=== PATIENT | female | born 1975 | race American Indian/Alaskan Native ===

== ENCOUNTER 2017-07-01 05:29 | Emergency (ER) | payer OTHER ==
[2017-07-01 05:56] VITALS: BP 150/94
[2017-07-01] MEDS ORDERED: TYLENOL #3 PO ONE (06:14)
--- NOTE | 2017-07-01 06:19 | Emergency Department Report ---
ED ENT HPI - General Chief complaint: Dental/Oral Stated complaint: TOOTHACHE Time Seen by Provider: 07/01/17 06:14 Source: patient Mode of arrival: Ambulatory Limitations: No Limitations - History of Present Illness Initial comments: 41-year-old female past medical history depression, dental cavities presents with complaint of acute on chronic left upper incisor toothache. Patient speaking in full sentences. No drooling trismus on exam. No audible wheezing or stridor. Patient fully lucid. States she has not yet seen a dentist for this problem. Pain is 8 out of 10. MD complaint: tooth pain Onset/Timin -: week(s) Location: tooth # 1 - dentla pain with cavity here Severity scale (0 -10): 6 Quality: aching Worsens with: swallowing, eating Context- Dental: history of dental caries, poor dental care Associated Symptoms: toothache - Related Data Home Medications Medication Instructions Recorded Confirmed Last Taken Citalopram Hydrobromide [Celexa] 40 mg PO DAILY 05/16/13 05/16/13 05/14/13 risperiDONE [RisperDAL] 3 mg PO 05/16/13 05/16/13 05/14/13 Previous Rx's Medication Instructions Recorded Last Taken Type Cephalexin [Keflex] 500 mg PO TID #14 capsule 10/25/13 Unknown Rx oxyCODONE /ACETAMINOPHEN [Percocet 1 tab PO Q6HR PRN #10 tablet 10/25/13 Unknown Rx 5/325 mg] Ciprofloxacin HCl [Cipro] 500 mg PO BID #20 tablet 01/05/14 Unknown Rx Promethazine [Phenergan] 25 mg PO Q6H PRN #14 tablet 01/05/14 Unknown Rx Cyclobenzaprine HCl [Flexeril 5mg] 5 mg PO BID #10 tablet 04/13/14 Unknown Rx Naproxen [Naprosyn] 250 mg PO BID #20 tablet 04/13/14 Unknown Rx traMADol [Ultram 50 MG tab] 50 mg PO Q6HR PRN #16 tablet 04/13/14 Unknown Rx Acetaminophen/Codeine [Tylenol 1 tab PO Q6H PRN #12 tab 07/01/17 Unknown Rx /Codeine # 3 tab] Amoxicillin [Trimox CAP] 500 mg PO Q8H #30 capsule 07/01/17 Unknown Rx Benzocaine [Orajel Liquid 20%] 1 ml MM Q6HR PRN #1 bottle 07/01/17 Unknown Rx Chlorhexidine Mouthwash [Peridex] 15 ml MM BID #1 bottle 07/01/17 Unknown Rx Ibuprofen [Motrin] 800 mg PO Q8HR PRN #30 tablet 07/01/17 Unknown Rx Allergies Allergy/AdvReac Type Severity Reaction Status Date / Time Sulfa (Sulfonamide Allergy Intermediate Shortness Verified 05/16/13 01:05 Antibiotics) of Breath ED Dental HPI - General Chief complaint: Dental/Oral Stated complaint: TOOTHACHE Time Seen by Provider: 07/01/17 06:14 Source: patient Mode of arrival: Ambulatory Limitations: No Limitations - Related Data Home Medications Medication Instructions Recorded Confirmed Last Taken Citalopram Hydrobromide [Celexa] 40 mg PO DAILY 05/16/13 05/16/13 05/14/13 risperiDONE [RisperDAL] 3 mg PO 05/16/13 05/16/13 05/14/13 Previous Rx's Medication Instructions Recorded Last Taken Type Cephalexin [Keflex] 500 mg PO TID #14 capsule 10/25/13 Unknown Rx oxyCODONE /ACETAMINOPHEN [Percocet 1 tab PO Q6HR PRN #10 tablet 10/25/13 Unknown Rx 5/325 mg] Ciprofloxacin HCl [Cipro] 500 mg PO BID #20 tablet 01/05/14 Unknown Rx Promethazine [Phenergan] 25 mg PO Q6H PRN #14 tablet 01/05/14 Unknown Rx Cyclobenzaprine HCl [Flexeril 5mg] 5 mg PO BID #10 tablet 04/13/14 Unknown Rx Naproxen [Naprosyn] 250 mg PO BID #20 tablet 04/13/14 Unknown Rx traMADol [Ultram 50 MG tab] 50 mg PO Q6HR PRN #16 tablet 04/13/14 Unknown Rx Acetaminophen/Codeine [Tylenol 1 tab PO Q6H PRN #12 tab 07/01/17 Unknown Rx /Codeine # 3 tab] Amoxicillin [Trimox CAP] 500 mg PO Q8H #30 capsule 07/01/17 Unknown Rx Benzocaine [Orajel Liquid 20%] 1 ml MM Q6HR PRN #1 bottle 07/01/17 Unknown Rx Chlorhexidine Mouthwash [Peridex] 15 ml MM BID #1 bottle 07/01/17 Unknown Rx Ibuprofen [Motrin] 800 mg PO Q8HR PRN #30 tablet 07/01/17 Unknown Rx Allergies Allergy/AdvReac Type Severity Reaction Status Date / Time Sulfa (Sulfonamide Allergy Intermediate Shortness Verified 05/16/13 01:05 Antibiotics) of Breath ED Review of Systems ROS: Stated complaint: TOOTHACHE Other details as noted in HPI ED Past Medical Hx - Past Medical History Previous Medical History?: Yes Hx Hypertension: No Additional medical history: bipolar - Surgical History Past Surgical History?: Yes Additional Surgical History: tubial ligation - Social History Smoking Status: Former Smoker Substance Use Type: None - Medications Home Medications: Home Medications Medication Instructions Recorded Confirmed Last Taken Type Citalopram Hydrobromide [Celexa] 40 mg PO DAILY 05/16/13 05/16/13 05/14/13 History risperiDONE [RisperDAL] 3 mg PO 05/16/13 05/16/13 05/14/13 History Cephalexin [Keflex] 500 mg PO TID #14 capsule 10/25/13 Unknown Rx oxyCODONE /ACETAMINOPHEN [Percocet 1 tab PO Q6HR PRN #10 tablet 10/25/13 Unknown Rx 5/325 mg] Ciprofloxacin HCl [Cipro] 500 mg PO BID #20 tablet 01/05/14 Unknown Rx Promethazine [Phenergan] 25 mg PO Q6H PRN #14 tablet 01/05/14 Unknown Rx Cyclobenzaprine HCl [Flexeril 5mg] 5 mg PO BID #10 tablet 04/13/14 Unknown Rx Naproxen [Naprosyn] 250 mg PO BID #20 tablet 04/13/14 Unknown Rx traMADol [Ultram 50 MG tab] 50 mg PO Q6HR PRN #16 tablet 04/13/14 Unknown Rx Acetaminophen/Codeine [Tylenol 1 tab PO Q6H PRN #12 tab 07/01/17 Unknown Rx /Codeine # 3 tab] Amoxicillin [Trimox CAP] 500 mg PO Q8H #30 capsule 07/01/17 Unknown Rx Benzocaine [Orajel Liquid 20%] 1 ml MM Q6HR PRN #1 bottle 07/01/17 Unknown Rx Chlorhexidine Mouthwash [Peridex] 15 ml MM BID #1 bottle 07/01/17 Unknown Rx Ibuprofen [Motrin] 800 mg PO Q8HR PRN #30 tablet 07/01/17 Unknown Rx ED Physical Exam - General Limitations: No Limitations General appearance: alert, in no apparent distress - Head Head exam: Present: atraumatic, normocephalic - Eye Eye exam: Present: normal appearance, PERRL, EOMI - ENT ENT exam: Present: mucous membranes moist - Expanded ENT Exam Expanded Teeth exam: Present: dental tenderness # (12) 1 - Dental Tenderness (cavity here) - Neck Neck exam: Present: normal inspection - Respiratory Respiratory exam: Present: normal lung sounds bilaterally. Absent: respiratory distress - Cardiovascular Cardiovascular Exam: Present: regular rate, normal rhythm. Absent: systolic murmur, diastolic murmur, rubs, gallop - GI/Abdominal GI/Abdominal exam: Present: soft, normal bowel sounds - Extremities Exam Extremities exam: Present: normal inspection - Back Exam Back exam: Present: normal inspection - Neurological Exam Neurological exam: Present: alert, oriented X3 - Psychiatric Psychiatric exam: Present: normal affect, normal mood - Skin Skin exam: Present: warm, dry, intact, normal color. Absent: rash ED Course Vital Signs 07/01/17 07/01/17 05:39 05:42 Temperature 98.3 F 98.3 F Pulse Rate 102 H 102 H Respiratory 20 20 Rate Blood Pressure 150/94 150/94 O2 Sat by Pulse 99 99 Oximetry ED Medical Decision Making - Medical Decision Making A/P: dental cavities, toothache, dental abscess 1- Motrin when necessary, amoxicillin ten-day course, Orajel when necessary, Peridex mouthwash daily basis, short course codeine when necessary 2- I provided patient with information for multiple dental clinics to follow up and stressed the importance of dental follow-up as she has a cavitiy that requires dental fixation or instrumentation 3- no clinical signs of facial abscess, no Sean's angina, no induration or cellulitis of floor of mouth or tongue 4- patient able to tolerate by mouth before discharge 5- no signs of facial infection. Advised patient that if he does not take antibiotics with follow-up with a dentist as soon as possible that a can result in potentially serious or dangerous infection to develop in jaw or face. Patient states that he understood these instructions. I advised patient to return to the ED for any persistent unrelenting nausea or vomiting fever or chills or headaches. Critical care attestation.: If time is entered above; I have spent that time in minutes in the direct care of this critically ill patient, excluding procedure time. ED Disposition Clinical Impression: Pain, dental, Dental cavity Disposition: TO HOME OR SELFCARE Is pt being admited?: No Does the pt Need Aspirin: No Condition: Stable Instructions: Dental Caries (ED), Toothache (ED) Prescriptions: Acetaminophen/Codeine [Tylenol /Codeine # 3 tab] 1 tab PO Q6H PRN #12 tab PRN Reason: Pain Amoxicillin [Trimox CAP] 500 mg PO Q8H #30 capsule Benzocaine [Orajel Liquid 20%] 1 ml MM Q6HR PRN #1 bottle PRN Reason: Toothache Chlorhexidine Mouthwash [Peridex] 15 ml MM BID #1 bottle Ibuprofen [Motrin] 800 mg PO Q8HR PRN #30 tablet PRN Reason: Pain Referrals: [facility] [Outside] - 3-5 Days Forms: Accompanied Note, Work/School Release Form(ED) Time of Disposition: 06:16
== END 2017-07-01 06:29 | disposition home or self-care (01) ==
LOC: ED 05:29
DX: K08.89 Other specified disorders of teeth and supporting structures (principal); Z87.891 Personal history of nicotine dependence; Z88.2 Allergy status to sulfonamides
CPT/HCPCS: 99282

== ENCOUNTER 2018-09-15 07:27 | Emergency (ER) | payer SELFPAY ==
[2018-09-15 07:35] VITALS: BP 137/92
--- NOTE | 2018-09-15 08:29 | Emergency Department Report ---
ED ENT HPI - General Chief complaint: Sore Throat Stated complaint: SORE THROAT/HARD TO SWALLOW Time Seen by Provider: 09/15/18 08:24 Source: patient Mode of arrival: Ambulatory Limitations: No Limitations - History of Present Illness MD complaint: sore throat -: Last night Severity: moderate Severity scale (0 -10): 4 Consistency: constant Worsens with: swallowing Associated Symptoms: cough, sore throat, rhinorrhea - Related Data Home Medications Medication Instructions Recorded Confirmed Last Taken Citalopram Hydrobromide [Celexa] 40 mg PO DAILY 05/16/13 05/16/13 05/14/13 risperiDONE [RisperDAL] 3 mg PO 05/16/13 05/16/13 05/14/13 Previous Rx's Medication Instructions Recorded Last Taken Type Cephalexin [Keflex] 500 mg PO TID #14 capsule 10/25/13 Unknown Rx oxyCODONE /ACETAMINOPHEN [Percocet 1 tab PO Q6HR PRN #10 tablet 10/25/13 Unknown Rx 5/325 mg] Ciprofloxacin HCl [Cipro] 500 mg PO BID #20 tablet 01/05/14 Unknown Rx Promethazine [Phenergan] 25 mg PO Q6H PRN #14 tablet 01/05/14 Unknown Rx Cyclobenzaprine HCl [Flexeril 5mg] 5 mg PO BID #10 tablet 04/13/14 Unknown Rx Naproxen [Naprosyn] 250 mg PO BID #20 tablet 04/13/14 Unknown Rx traMADol [Ultram 50 MG tab] 50 mg PO Q6HR PRN #16 tablet 04/13/14 Unknown Rx Acetaminophen/Codeine [Tylenol 1 tab PO Q6H PRN #12 tab 07/01/17 Unknown Rx /Codeine # 3 tab] Amoxicillin [Trimox CAP] 500 mg PO Q8H #30 capsule 07/01/17 Unknown Rx Benzocaine [Orajel Liquid 20%] 1 ml MM Q6HR PRN #1 bottle 07/01/17 Unknown Rx Chlorhexidine Mouthwash [Peridex] 15 ml MM BID #1 bottle 07/01/17 Unknown Rx Ibuprofen [Motrin] 800 mg PO Q8HR PRN #30 tablet 07/01/17 Unknown Rx Allergies Allergy/AdvReac Type Severity Reaction Status Date / Time Sulfa (Sulfonamide Allergy Intermediate Shortness Verified 05/16/13 01:05 Antibiotics) of Breath ED Dental HPI - General Chief complaint: Sore Throat Stated complaint: SORE THROAT/HARD TO SWALLOW Time Seen by Provider: 09/15/18 08:24 Source: patient Mode of arrival: Ambulatory Limitations: No Limitations - Related Data Home Medications Medication Instructions Recorded Confirmed Last Taken Citalopram Hydrobromide [Celexa] 40 mg PO DAILY 05/16/13 05/16/13 05/14/13 risperiDONE [RisperDAL] 3 mg PO 05/16/13 05/16/13 05/14/13 Previous Rx's Medication Instructions Recorded Last Taken Type Cephalexin [Keflex] 500 mg PO TID #14 capsule 10/25/13 Unknown Rx oxyCODONE /ACETAMINOPHEN [Percocet 1 tab PO Q6HR PRN #10 tablet 10/25/13 Unknown Rx 5/325 mg] Ciprofloxacin HCl [Cipro] 500 mg PO BID #20 tablet 01/05/14 Unknown Rx Promethazine [Phenergan] 25 mg PO Q6H PRN #14 tablet 01/05/14 Unknown Rx Cyclobenzaprine HCl [Flexeril 5mg] 5 mg PO BID #10 tablet 04/13/14 Unknown Rx Naproxen [Naprosyn] 250 mg PO BID #20 tablet 04/13/14 Unknown Rx traMADol [Ultram 50 MG tab] 50 mg PO Q6HR PRN #16 tablet 04/13/14 Unknown Rx Acetaminophen/Codeine [Tylenol 1 tab PO Q6H PRN #12 tab 07/01/17 Unknown Rx /Codeine # 3 tab] Amoxicillin [Trimox CAP] 500 mg PO Q8H #30 capsule 07/01/17 Unknown Rx Benzocaine [Orajel Liquid 20%] 1 ml MM Q6HR PRN #1 bottle 07/01/17 Unknown Rx Chlorhexidine Mouthwash [Peridex] 15 ml MM BID #1 bottle 07/01/17 Unknown Rx Ibuprofen [Motrin] 800 mg PO Q8HR PRN #30 tablet 07/01/17 Unknown Rx Allergies Allergy/AdvReac Type Severity Reaction Status Date / Time Sulfa (Sulfonamide Allergy Intermediate Shortness Verified 05/16/13 01:05 Antibiotics) of Breath ED Review of Systems ROS: Stated complaint: SORE THROAT/HARD TO SWALLOW Other details as noted in HPI Comment: All other systems reviewed and negative Constitutional: denies: chills, fever ENT: throat pain, congestion Respiratory: cough. denies: orthopnea, shortness of breath, SOB with exertion, SOB at rest Cardiovascular: denies: chest pain, palpitations Gastrointestinal: denies: abdominal pain, nausea, vomiting Neurological: denies: headache, weakness, numbness, paresthesias, confusion ED Past Medical Hx - Past Medical History Hx Hypertension: No Additional medical history: bipolar - Surgical History Additional Surgical History: tubial ligation - Social History Smoking Status: Never Smoker Substance Use Type: None - Medications Home Medications: Home Medications Medication Instructions Recorded Confirmed Last Taken Type Citalopram Hydrobromide [Celexa] 40 mg PO DAILY 05/16/13 05/16/13 05/14/13 History risperiDONE [RisperDAL] 3 mg PO 05/16/13 05/16/13 05/14/13 History Cephalexin [Keflex] 500 mg PO TID #14 capsule 10/25/13 Unknown Rx oxyCODONE /ACETAMINOPHEN [Percocet 1 tab PO Q6HR PRN #10 tablet 10/25/13 Unknown Rx 5/325 mg] Ciprofloxacin HCl [Cipro] 500 mg PO BID #20 tablet 01/05/14 Unknown Rx Promethazine [Phenergan] 25 mg PO Q6H PRN #14 tablet 01/05/14 Unknown Rx Cyclobenzaprine HCl [Flexeril 5mg] 5 mg PO BID #10 tablet 04/13/14 Unknown Rx Naproxen [Naprosyn] 250 mg PO BID #20 tablet 04/13/14 Unknown Rx traMADol [Ultram 50 MG tab] 50 mg PO Q6HR PRN #16 tablet 04/13/14 Unknown Rx Acetaminophen/Codeine [Tylenol 1 tab PO Q6H PRN #12 tab 07/01/17 Unknown Rx /Codeine # 3 tab] Amoxicillin [Trimox CAP] 500 mg PO Q8H #30 capsule 07/01/17 Unknown Rx Benzocaine [Orajel Liquid 20%] 1 ml MM Q6HR PRN #1 bottle 07/01/17 Unknown Rx Chlorhexidine Mouthwash [Peridex] 15 ml MM BID #1 bottle 07/01/17 Unknown Rx Ibuprofen [Motrin] 800 mg PO Q8HR PRN #30 tablet 07/01/17 Unknown Rx ED Physical Exam - General Limitations: No Limitations General appearance: alert, in no apparent distress - Head Head exam: Present: atraumatic, normocephalic, normal inspection - Eye Eye exam: Present: normal appearance - ENT ENT exam: Present: mucous membranes moist, other (pharyngeal erythema, no tonsillar exudates.) - Neck Neck exam: Present: normal inspection, full ROM. Absent: tenderness, meningismus, lymphadenopathy, thyromegaly - Respiratory Respiratory exam: Present: normal lung sounds bilaterally. Absent: wheezes, rales, rhonchi, stridor, chest wall tenderness, accessory muscle use, decreased breath sounds, prolonged expiratory - Cardiovascular Cardiovascular Exam: Present: regular rate, normal rhythm, normal heart sounds - GI/Abdominal GI/Abdominal exam: Present: soft. Absent: distended, tenderness, guarding, rebound, rigid, organomegaly, mass, bruit, pulsatile mass - Extremities Exam Extremities exam: Present: normal inspection, full ROM, normal capillary refill - Back Exam Back exam: Present: normal inspection, full ROM. Absent: tenderness, CVA tenderness (R), CVA tenderness (L), muscle spasm, paraspinal tenderness, vertebral tenderness - Neurological Exam Neurological exam: Present: alert, oriented X3, CN II-XII intact, normal gait - Skin Skin exam: Present: warm, intact ED Course Vital Signs 09/15/18 09/15/18 07:33 08:24 Temperature 97.7 F Pulse Rate 87 Respiratory 18 18 Rate Blood Pressure 137/92 [Right] O2 Sat by Pulse 100 99 Oximetry ED Medical Decision Making - Medical Decision Making Strep test is negative. I believe patient is having a viral syndrome. Critical care attestation.: If time is entered above; I have spent that time in minutes in the direct care of this critically ill patient, excluding procedure time. ED Disposition Clinical Impression: Viral syndrome Disposition: DC-01 TO HOME OR SELFCARE Is pt being admited?: No Condition: Stable Instructions: Viral Syndrome (ED) Referrals: TELLY PHAM [Primary Care Provider] - 3-5 Days
== END 2018-09-15 09:22 | disposition home or self-care (01) ==
LOC: ED 07:27
DX: B34.9 Viral infection, unspecified (principal); J02.9 Acute pharyngitis, unspecified; F31.9 Bipolar disorder, unspecified; Z98.51 Tubal ligation status; Z88.2 Allergy status to sulfonamides
CPT/HCPCS: 87116; 87430; 99283

== ENCOUNTER 2019-12-21 04:49 | Emergency (ER) | payer SELFPAY ==
--- NOTE | 2019-12-21 06:13 | Emergency Department Report ---
- General Chief Complaint: Pain General Stated Complaint: BODY ACHE, AND FEVER Time Seen by Provider: 12/21/19 05:58 Source: patient Mode of arrival: Ambulatory Limitations: No Limitations - History of Present Illness Initial Comments: 44-year-old female presents emergency department complaining of one-week history of cough with mild sore throat coryza occasional sweats and chills. MD Complaint: cough, rhinorrhea -: Gradual Severity: mild, moderate Quality: dull Consistency: constant Improves With: nothing Worsens With: nothing Associated Symptoms: cough. denies: myalgias, headache, shortness of breath, abdominal pain, nausea, confusion, right sweats, weight loss, epistaxis Treatments Prior to Arrival: none - Related Data Home Medications Medication Instructions Recorded Confirmed Last Taken Citalopram Hydrobromide [Celexa] 40 mg PO DAILY 05/16/13 05/16/13 05/14/13 risperiDONE [RisperDAL] 3 mg PO 05/16/13 05/16/13 05/14/13 Previous Rx's Medication Instructions Recorded Last Taken Type Cephalexin [Keflex] 500 mg PO TID #14 capsule 10/25/13 Unknown Rx oxyCODONE /ACETAMINOPHEN [Percocet 1 tab PO Q6HR PRN #10 tablet 10/25/13 Unknown Rx 5/325 mg] Ciprofloxacin HCl [Cipro] 500 mg PO BID #20 tablet 01/05/14 Unknown Rx Promethazine [Phenergan] 25 mg PO Q6H PRN #14 tablet 01/05/14 Unknown Rx Cyclobenzaprine HCl [Flexeril 5mg] 5 mg PO BID #10 tablet 04/13/14 Unknown Rx Naproxen [Naprosyn] 250 mg PO BID #20 tablet 04/13/14 Unknown Rx traMADoL [Ultram 50 MG tab] 50 mg PO Q6HR PRN #16 tablet 04/13/14 Unknown Rx Acetaminophen/Codeine [Tylenol 1 tab PO Q6H PRN #12 tab 07/01/17 Unknown Rx /Codeine # 3 tab] Amoxicillin [Trimox CAP] 500 mg PO Q8H #30 capsule 07/01/17 Unknown Rx Benzocaine [Orajel Liquid 20%] 1 ml MM Q6HR PRN #1 bottle 07/01/17 Unknown Rx Chlorhexidine Mouthwash [Peridex] 15 ml MM BID #1 bottle 07/01/17 Unknown Rx Ibuprofen [Motrin] 800 mg PO Q8HR PRN #30 tablet 07/01/17 Unknown Rx Naproxen [Naprosyn] 500 mg PO BID #14 tablet 09/15/18 Unknown Rx guaiFENesin/CODEINE [Robitussin AC] 10 ml PO TID PRN #100 ml 09/15/18 Unknown Rx Albuterol INH(or & Nicu Only) 1 puff IH Q4-6H PRN #1 inha 12/21/19 Unknown Rx [ProAir HFA Inhaler] Azithromycin [Zithromax] 500 mg PO QDAY #5 tablet 12/21/19 Unknown Rx Allergies Allergy/AdvReac Type Severity Reaction Status Date / Time Sulfa (Sulfonamide Allergy Intermediate Shortness Verified 05/16/13 01:05 Antibiotics) of Breath ED Review of Systems ROS: Stated complaint: BODY ACHE, AND FEVER Other details as noted in HPI Comment: All other systems reviewed and negative ED Past Medical Hx - Past Medical History Previous Medical History?: Yes Hx Hypertension: No Hx Psychiatric Treatment: Yes (Bipolar) Additional medical history: bipolar - Surgical History Past Surgical History?: Yes Additional Surgical History: tubial ligation - Social History Smoking Status: Current Some Day Smoker Substance Use Type: None - Medications Home Medications: Home Medications Medication Instructions Recorded Confirmed Last Taken Type Citalopram Hydrobromide [Celexa] 40 mg PO DAILY 05/16/13 05/16/13 05/14/13 History risperiDONE [RisperDAL] 3 mg PO 05/16/13 05/16/13 05/14/13 History Cephalexin [Keflex] 500 mg PO TID #14 capsule 10/25/13 Unknown Rx oxyCODONE /ACETAMINOPHEN [Percocet 1 tab PO Q6HR PRN #10 tablet 10/25/13 Unknown Rx 5/325 mg] Ciprofloxacin HCl [Cipro] 500 mg PO BID #20 tablet 01/05/14 Unknown Rx Promethazine [Phenergan] 25 mg PO Q6H PRN #14 tablet 01/05/14 Unknown Rx Cyclobenzaprine HCl [Flexeril 5mg] 5 mg PO BID #10 tablet 04/13/14 Unknown Rx Naproxen [Naprosyn] 250 mg PO BID #20 tablet 04/13/14 Unknown Rx traMADoL [Ultram 50 MG tab] 50 mg PO Q6HR PRN #16 tablet 04/13/14 Unknown Rx Acetaminophen/Codeine [Tylenol 1 tab PO Q6H PRN #12 tab 07/01/17 Unknown Rx /Codeine # 3 tab] Amoxicillin [Trimox CAP] 500 mg PO Q8H #30 capsule 07/01/17 Unknown Rx Benzocaine [Orajel Liquid 20%] 1 ml MM Q6HR PRN #1 bottle 07/01/17 Unknown Rx Chlorhexidine Mouthwash [Peridex] 15 ml MM BID #1 bottle 07/01/17 Unknown Rx Ibuprofen [Motrin] 800 mg PO Q8HR PRN #30 tablet 07/01/17 Unknown Rx Naproxen [Naprosyn] 500 mg PO BID #14 tablet 09/15/18 Unknown Rx guaiFENesin/CODEINE [Robitussin AC] 10 ml PO TID PRN #100 ml 09/15/18 Unknown Rx Albuterol INH(or & Nicu Only) 1 puff IH Q4-6H PRN #1 inha 12/21/19 Unknown Rx [ProAir HFA Inhaler] Azithromycin [Zithromax] 500 mg PO QDAY #5 tablet 12/21/19 Unknown Rx ED Physical Exam - General Limitations: No Limitations General appearance: alert, in no apparent distress - Head Head exam: Present: atraumatic, normocephalic - Eye Eye exam: Present: normal appearance, PERRL, EOMI Pupils: Present: normal accommodation - ENT ENT exam: Present: normal exam, mucous membranes moist. Absent: TM's normal bilaterally - Neck Neck exam: Present: normal inspection, tenderness, full ROM - Respiratory Respiratory exam: Present: normal lung sounds bilaterally. Absent: respiratory distress, wheezes, rhonchi, chest wall tenderness, accessory muscle use - Cardiovascular Cardiovascular Exam: Present: regular rate, normal rhythm. Absent: systolic murmur, diastolic murmur, rubs, gallop - GI/Abdominal GI/Abdominal exam: Present: soft, normal bowel sounds. Absent: tenderness, guarding, hyperactive bowel sounds, hypoactive bowel sounds, organomegaly, mass - Extremities Exam Extremities exam: Present: normal inspection, normal capillary refill - Back Exam Back exam: Present: normal inspection - Neurological Exam Neurological exam: Present: alert, oriented X3, CN II-XII intact - Psychiatric Psychiatric exam: Present: normal affect, normal mood - Skin Skin exam: Present: warm, dry, intact, normal color. Absent: rash ED Course Vital Signs 12/21/19 12/21/19 04:53 07:06 Temperature 98.6 F 99.0 F Pulse Rate 103 H 99 H Respiratory 18 18 Rate Blood Pressure 152/87 Blood Pressure 115/79 [Left] O2 Sat by Pulse 98 99 Oximetry ED Medical Decision Making - Radiology Data Radiology results: report reviewed [facility] [address] [place] [address] XRay Report Signed Patient: ELISE LLANOS MR#: [id number] : 1975 Acct:[id number] Age/Sex: 44 / F ADM Date: 12/21/19 Loc: ED Attending Dr: Ordering Physician: ANABELA WHYTE Date of Service: 12/21/19 Procedure(s): XR chest routine 2V Accession Number(s): [id number] cc: ANABELA WHYTE Fluoro Time In Minutes: CHEST 2 VIEWS, 12/21/2019 6:04 AM INDICATION: Cough COMPARISON: Chest radiograph, 10/25/2013 FINDINGS: Support devices: None. Heart: The heart is normal in size. Lungs/pleura: The lungs are well expanded and appear clear of focal airspace di sease or significant pleural effusion. Additional findings: No significant acute abnormality. IMPRESSION: 1. No evidence of acute cardiopulmonary process. Signer Name: Brianna Petersen MD Signed: 12/21/2019 6:15 AM Workstation Name: [id number] Transcribed By: EB Dictated By: Brianna Petersen MD Electronically Authenticated By: Brianna Petersen MD Signed Date/Time: 12/21/19614 DD/ 3 TD/TT: - Medical Decision Making This patient presents with acute cough, most consistent with bronchitis. Differential diagnosis includes hyperreactive airways, asthma. Presentation not consistent with acute bacterial pneumonia, influenza, asthma, transient airway hyperresponsiveness. Presentation not consistent with chronic causes of cough (including GERD, asthma, postnasal discharge, medication side effect, CHF, lung cancer or mass). Plan: Normal CXR, supportive care, reassess Critical care attestation.: If time is entered above; I have spent that time in minutes in the direct care of this critically ill patient, excluding procedure time. ED Disposition Clinical Impression: Bronchitis Disposition: DC-01 TO HOME OR SELFCARE Is pt being admited?: No Does the pt Need Aspirin: No Condition: Stable Instructions: Acute Bronchitis (ED), Viral Syndrome (ED) Referrals: PRIMARY CARE, [Primary Care Provider] - 3-5 Days
--- NOTE | 2019-12-21 06:19 | XRay Report ---
CHEST 2 VIEWS, 12/21/2019 6:04 AM INDICATION: Cough COMPARISON: Chest radiograph, 10/25/2013 FINDINGS: Support devices: None. Heart: The heart is normal in size. Lungs/pleura: The lungs are well expanded and appear clear of focal airspace disease or significant p leural effusion. Additional findings: No significant acute abnormality. IMPRESSION: 1. No evidence of acute cardiopulmonary process. Signer Name: Brianna Petersen MD Signed: 12/21/2019 6:15 AM Workstation Name: [email or web address]
[2019-12-21 07:07] VITALS: BP 115/79
== END 2019-12-21 07:16 | disposition home or self-care (01) ==
LOC: ED 04:49
DX: J40 Bronchitis, not specified as acute or chronic (principal); F31.9 Bipolar disorder, unspecified; F17.200 Nicotine dependence, unspecified, uncomplicated; Z88.2 Allergy status to sulfonamides; Z79.899 Other long term (current) drug therapy; Z98.51 Tubal ligation status
CPT/HCPCS: 71046; 99283

== ENCOUNTER 2022-01-25 11:42 | Emergency (ER) | payer MEDICAID ==
[2022-01-25 14:03] LABS: Bilirubin,Urine NEG (Negative); Blood,Urine SM (Negative); Color,Urine Yellow (Yellow)
[2022-01-25 14:07] LABS: Hematocrit 39.2 % (30.3-42.9); Hemoglobin 12.9 gm/dl (10.1-14.3); Mean Corpuscular HGB Conc 33 % (30-34); Mean Corpuscular Volume 86 fl (79-97); Platelet Count 286 K/mm3 (140-440); Red Blood Count 4.58 M/mm3 (3.65-5.03); Red Cell Distribution Width 14.6 % (13.2-15.2)
[2022-01-25 14:08] LABS: Bacteria,Urine 1+ /HPF (Negative); Hyaline Casts,Urine 3 /LPF; Mucus,Urine FEW /HPF
[2022-01-25] MEDS ORDERED: SODIUM CHLORIDE 0.9% 1000 ML 1,000 ML IV ONE (14:24)
[2022-01-25] MEDS ORDERED: cefTRIAXone/NS 1 GM/50 ML 1 GM/50 ML BAG IV ONE (14:24)
[2022-01-25] MEDS ORDERED: ONDANSETRON 4 MG/2 ML INJ IV ONE (14:24)
[2022-01-25 14:29] LABS: Alanine Aminotransferase 21 units/L (7-56); Albumin 4.5 g/dL (3.9-5); Blood Urea Nitrogen 5 mg/dL (7-17); Calcium 9.6 mg/dL (8.4-10.2); Hemolysis Index 4
--- NOTE | 2022-01-25 14:29 | Emergency Department Report ---
ED Abdominal Pain HPI - General Chief Complaint: Nausea/Vomiting/Diarrhea Stated Complaint: FOOD POISONING PUI?: No Time Seen by Provider: 01/25/22 14:24 Source: patient Mode of arrival: Ambulatory Limitations: No Limitations - History of Present Illness Initial Comments: Ms. Ferguson is a 46-year-old female that comes to the emergency room complaining of nausea vomiting and dysuria this morning. She states she had 1 episode of dizziness. She denies diarrhea, chest pain or shortness of breath. Denies fever or chills. Patient states that she is perimenopausal. Patient has had a tubal ligation. Patient denies abdominal pain but she does endorse some mild left-sided back pain. -: Gradual, hour(s) Improves With: nothing Worsens With: nothing Associated Symptoms: denies other symptoms, nausea, vomiting, dysuria. denies: diarrhea, fever, chills, constipation, hematemesis, hematochezia, melena, hematuria, anorexia, syncope - Related Data Home Medications Medication Instructions Recorded Confirmed Last Taken Citalopram Hydrobromide [Celexa] 40 mg PO DAILY 05/16/13 05/16/13 05/14/13 risperiDONE [RisperDAL] 3 mg PO 05/16/13 05/16/13 05/14/13 Previous Rx's Medication Instructions Recorded Last Taken Type Cyclobenzaprine HCl [Flexeril 5mg] 5 mg PO BID #10 tablet 04/13/14 Unknown Rx Fluconazole [Diflucan TAB] 100 mg PO QDAY #2 tablet 01/25/22 Unknown Rx Ondansetron [Zofran Odt] 4 mg PO Q8HR PRN #10 tab.rapdis 01/25/22 Unknown Rx cephALEXin [Keflex] 500 mg PO Q12HR #20 cap 01/25/22 Unknown Rx Allergies Allergy/AdvReac Type Severity Reaction Status Date / Time Sulfa (Sulfonamide Allergy Intermediate Shortness Verified 05/16/13 01:05 Antibiotics) of Breath ED Review of Systems ROS: Stated complaint: FOOD POISONING Other details as noted in HPI Comment: All other systems reviewed and negative ED Past Medical Hx - Past Medical History Previous Medical History?: Yes Hx Hypertension: No Hx Psychiatric Treatment: Yes (Bipolar) Additional medical history: bipolar - Surgical History Past Surgical History?: Yes Additional Surgical History: tubial ligation - Family History Family history: no significant - Social History Smoking Status: Never Smoker Substance Use Type: None - Medications Home Medications: Home Medications Medication Instructions Recorded Confirmed Last Taken Type Citalopram Hydrobromide [Celexa] 40 mg PO DAILY 05/16/13 05/16/13 05/14/13 History risperiDONE [RisperDAL] 3 mg PO 05/16/13 05/16/13 05/14/13 History Cyclobenzaprine HCl [Flexeril 5mg] 5 mg PO BID #10 tablet 04/13/14 Unknown Rx Fluconazole [Diflucan TAB] 100 mg PO QDAY #2 tablet 01/25/22 Unknown Rx Ondansetron [Zofran Odt] 4 mg PO Q8HR PRN #10 tab.rapdis 01/25/22 Unknown Rx cephALEXin [Keflex] 500 mg PO Q12HR #20 cap 01/25/22 Unknown Rx ED Physical Exam - General Limitations: No Limitations General appearance: alert, in no apparent distress - Head Head exam: Present: atraumatic, normocephalic - Eye Eye exam: Present: normal appearance - ENT ENT exam: Present: mucous membranes moist - Neck Neck exam: Present: normal inspection - Respiratory Respiratory exam: Present: normal lung sounds bilaterally. Absent: respiratory distress - Cardiovascular Cardiovascular Exam: Present: regular rate, normal rhythm. Absent: systolic murmur, diastolic murmur, rubs, gallop - GI/Abdominal GI/Abdominal exam: Present: soft, normal bowel sounds - Extremities Exam Extremities exam: Present: normal inspection - Back Exam Back exam: Present: normal inspection - Neurological Exam Neurological exam: Present: alert, oriented X3 - Psychiatric Psychiatric exam: Present: normal affect, normal mood - Skin Skin exam: Present: warm, dry, intact, normal color. Absent: rash ED Course Vital Signs 01/25/22 01/25/22 12:32 16:42 Temperature 98.2 F Pulse Rate 76 80 Respiratory 16 18 Rate Blood Pressure 136/84 130/72 [Left] O2 Sat by Pulse 99 99 Oximetry ED Medical Decision Making - Lab Data Result diagrams: 01/25/22 13:27 01/25/22 13:27 - Medical Decision Making Lab Results 01/25/22 01/25/22 01/25/22 Range/Units 13:27 13:27 Unknown WBC 7.8 (4.5-11.0) K/mm3 RBC 4.58 (3.65-5.03) M/mm3 Hgb 12.9 (10.1-14.3) gm/dl Hct 39.2 (30.3-42.9) % MCV 86 (79-97) fl MCH 28 (28-32) pg MCHC 33 (30-34) % RDW 14.6 (13.2-15.2) % Plt Count 286 (140-440) K/mm3 Sodium 140 (137-145) mmol/L Potassium 3.5 L (3.6-5.0) mmol/L Chloride 100.0 (98-107) mmol/L Carbon Dioxide 27 (22-30) mmol/L Anion Gap 17 mmol/L BUN 5 L (7-17) mg/dL Creatinine 0.7 (0.6-1.2) mg/dL Estimated GFR > 60 ml/min BUN/Creatinine Ratio 7 % Glucose 115 H (65-100) mg/dL Calcium 9.6 (8.4-10.2) mg/dL Total Bilirubin 0.80 (0.1-1.2) mg/dL AST 22 (5-40) units/L ALT 21 (7-56) units/L Alkaline Phosphatase 58 (35-129) units/L Total Protein 7.7 (6.3-8.2) g/dL Albumin 4.5 (3.9-5) g/dL Albumin/Globulin Ratio 1.4 % Lipase 16 (13-60) units/L Urine Color Yellow (Yellow) Urine Turbidity Slightly-cloudy (Clear) Urine pH 7.0 (5.0-7.0) Ur Specific [place]ell 1.012 (1.003-1.030) Urine Protein 30 mg/dl (Negative) mg/dL Urine Glucose (UA) Neg (Negative) mg/dL Urine Ketones Neg (Negative) mg/dL Urine Blood Sm (Negative) Urine Nitrite Neg (Negative) Urine Bilirubin Neg (Negative) Urine Urobilinogen 2.0 (<2.0) mg/dL Ur Leukocyte Esterase Mod (Negative) Urine WBC (Auto) 81.0 H (0.0-6.0) /HPF Urine RBC (Auto) 9.0 (0.0-6.0) /HPF U Epithel Cells (Auto) 3.0 (0-13.0) /HPF Urine Bacteria (Auto) 1+ (Negative) /HPF Hyaline Casts 3 /LPF Urine Mucus Few /HPF Urine Yeast (Budding) 2+ /HPF Vital Signs 01/25/22 12:32 Temperature 98.2 F Pulse Rate 76 Respiratory 16 Rate Blood Pressure 136/84 [Left] O2 Sat by Pulse 99 Oximetry Medicated with 1 L normal saline, a gram of Rocephin and Diflucan in the ER. Zofran for nausea. Patient denies vaginal discharge. Pain is not consistent with that of a kidney stone. My indices of suspicion for kidney stone is minimal, therefore she is not being scanned.. P.o. challenge on discharge. Patient being discharged home with discharge plan of care including diet, activity medication and follow-up. She verbalizes understanding of plan of care. - Differential Diagnosis UTI/PYLO/K STONE Critical care attestation.: If time is entered above; I have spent that time in minutes in the direct care o f this critically ill patient, excluding procedure time. ED Disposition Clinical Impression: Yeast UTI UTI (urinary tract infection) Qualifiers: Urinary tract infection type: site unspecified Hematuria presence: with hematuria Qualified Code(s): N39.0 - Urinary tract infection, site not specified Disposition: HOME / SELF CARE / HOMELESS Is pt being admited?: No Does the pt Need Aspirin: No Condition: Stable Instructions: Urinary Tract Infection, Adult Additional Instructions: Medications as ordered today. Take antibiotic until gone and then follow-up with primary care to make sure that this goes away. Motrin or Tylenol for pain. Stay well-hydrated with water. Diet and activity as tolerated. Avoid sugars and juices high in sugar Prescriptions: Fluconazole [Diflucan TAB] 100 mg PO QDAY #2 tablet cephALEXin [Keflex] 500 mg PO Q12HR #20 cap Ondansetron [Zofran Odt] 4 mg PO Q8HR PRN #10 tab.rapdis PRN Reason: Vomiting Referrals: TELLY PHAM MD [Staff Physician] - 3-5 Days Forms: Work/School Release Form(ED) Time of Disposition: 16:12
[2022-01-25 14:30] LABS: BUN/Creatinine Ratio 7
[2022-01-25] MEDS ORDERED: FLUCONAZOLE 100 MG TAB PO SCH (16:10)
[2022-01-25 16:43] VITALS: BP 130/72
== END 2022-01-26 05:15 | disposition home or self-care (01) ==
LOC: ED 11:42
DX: N39.0 Urinary tract infection, site not specified (principal); F31.9 Bipolar disorder, unspecified; Z88.1 Allergy status to other antibiotic agents; Z79.899 Other long term (current) drug therapy
CPT/HCPCS: 36415; 80053; 81001; 83690; 85027; 87076; 87086; 87186; 96365; 96375; 99283; J0696; J2405; J7030

== ENCOUNTER 2022-02-04 12:07 | Emergency (ER) | payer MEDICAID ==
--- NOTE | 2022-02-04 13:00 | Cat Scan Report ---
CT HEAD WITHOUT CONTRAST INDICATION / CLINICAL INFORMATION: neuro deficits <6hrs or sx present upon awakening. TECHNIQUE: All CT scans at this location are performed using CT dose reduction for ALARA by means of automated exposure control. COMPARISON: None available. FINDINGS: BRAIN PARENCHYMA: No acute intracranial hemorrhage. No evidence of recent infarct. No mass effect or midline shift. VENTRICULAR SYSTEM/EXTRA-AXIAL SPACES: Ventricles are normal for age. No extra-axial fluid collection . ORBITS: Normal as visualized. SKELETAL SYSTEM/SOFT TISSUES: Normal bones and soft tissues. PARANASAL SINUSES/MASTOID AIR CELLS: No significant abnormality. ADDITIONAL FINDINGS: None. IMPRESSION: 1. No acute intracranial abnormality. Signer Name: Sulaiman Mello MD Signed: 02/04/2022 12:56 PM Workstation Name: [id number]
[2022-02-04 13:34] LABS: Blood Urea Nitrogen 6 mg/dL (7-17); Calcium 9.7 mg/dL (8.4-10.2); Hemolysis Index 2
[2022-02-04 13:35] LABS: BUN/Creatinine Ratio 9
[2022-02-04 13:47] LABS: Basophils % (Auto) 0.6 % (0.0-1.8); Eosinophils # (Auto) 0.1 K/mm3 (0.0-0.4); Eosinophils % (Auto) 0.7 % (0.0-4.3); Hematocrit 39.1 % (30.3-42.9); Hemoglobin 12.8 gm/dl (10.1-14.3); Lymphocytes # (Auto) 2.1 K/mm3 (1.2-5.4); Lymphocytes % (Auto) 25.4 % (13.4-35.0); Mean Corpuscular HGB Conc 33 % (30-34); Mean Corpuscular Volume 87 fl (79-97); Monocytes # (Auto) 0.3 K/mm3 (0.0-0.8); Monocytes % (Auto) 3.7 % (0.0-7.3); Platelet Count 245 K/mm3 (140-440); Red Blood Count 4.53 M/mm3 (3.65-5.03); Red Cell Distribution Width 14.4 % (13.2-15.2)
[2022-02-04 14:02] LABS: INR 0.88 (0.87-1.13)
--- NOTE | 2022-02-04 20:00 | Electrocardiograph Report ---
[facility] Test Date: 2022-02-04 Test Time: 12:23:54 Pat Name: ELISE BACA Department: Room: Gender: F Research Neuropsychologist: MAHSA : 1975 Requested By: ED DOC Order Number: [id number] Reading MD: Ewelina Blanco Measurements Intervals Fraser Rate: 96 P: 59 MO: 156 QRS: -26 QRSD: 95 T: 34 QT: 359 QTc: 453 Interpretive Statements Sinus rhythm No previous ECG available for comparison Electronically Signed On 02-04-2022 19:59:57 EDT by Ewelina Blanco
--- NOTE | 2022-02-05 06:59 | Emergency Department Report ---
HPI - General Chief Complaint: Neuro Symptoms/Deficit Time Seen by Provider: 02/05/22 06:41 - HPI HPI: Room 19 Patient is a 46-year-old female present with a chief complaint of paresthesia. The patient states for the past 2 days she has had tingling in both hands and feet. Patient states the tingling has been constant. Patient denies any preceding trauma or fever. Patient denies previous episodes of the same. The patient states she felt dizzy at times. At this moment nothing is bothering the patient has some tingling in her hands and feet ED Past Medical Hx - Past Medical History Hx Psychiatric Treatment: Yes (Bipolar) Additional medical history: bipolar - Surgical History Additional Surgical History: tubial ligation - Family History Family history: no significant - Social History Smoking Status: Former Smoker (None x5-year) Substance Use Type: None (Denies illicit drug use) - Medications Home Medications: Home Medications Medication Instructions Recorded Confirmed Last Taken Type Citalopram Hydrobromide [Celexa] 40 mg PO DAILY 05/16/13 05/16/13 05/14/13 History risperiDONE [RisperDAL] 3 mg PO 05/16/13 05/16/13 05/14/13 History Cyclobenzaprine HCl [Flexeril 5mg] 5 mg PO BID #10 tablet 04/13/14 Unknown Rx Fluconazole [Diflucan TAB] 100 mg PO QDAY #2 tablet 01/25/22 Unknown Rx Ondansetron [Zofran Odt] 4 mg PO Q8HR PRN #10 tab.rapdis 01/25/22 Unknown Rx cephALEXin [Keflex] 500 mg PO Q12HR #20 cap 01/25/22 Unknown Rx ED Review of Systems ROS: Stated complaint: DIZZY/NUMBNESS IN FEET/FINGERS/BLUR VISION Other details as noted in HPI Constitutional: no symptoms reported Eyes: denies: eye pain ENT: denies: throat pain Respiratory: no symptoms reported Cardiovascular: denies: chest pain Endocrine: no symptoms reported Gastrointestinal: nausea. denies: vomiting Genitourinary: denies: dysuria Musculoskeletal: denies: back pain Neurological: paresthesias. denies: headache Physical Exam - Physical Exam Vital Signs: Vital Signs 02/04/22 12:13 Temperature 98.9 F Pulse Rate 94 H Respiratory 18 Rate Blood Pressure 140/89 O2 Sat by Pulse 98 Oximetry Physical Exam: GENERAL: The patient is well-developed well-nourished female lying on stretcher not appearing to be in acute distress. [] HEENT: Normocephalic. Atraumatic. Extraocular motions are intact. Patient has moist mucous membranes. NECK: Supple. Trachea midline CHEST/LUNGS: Clear to auscultation. There is no respiratory distress noted. HEART/CARDIOVASCULAR: Regular. There is no tachycardia. There is no gallop rub or murmur. 2+ radial pulse bilaterally, 2+ DP bilaterally. Normal capillary refill in the digits bilaterally ABDOMEN: Abdomen is soft, nontender. Patient has normal bowel sounds. There is no abdominal distention. SKIN: There is no rash. There is no edema. There is no diaphoresis. NEURO: The patient is awake, alert, and oriented. The patient is cooperative. The patient has no focal neurologic deficits. The patient has normal speech. Cranial nerves II through XII grossly intact. Patient able to hold either upper extremity at 45 degree angle for 10-second count without drift. Patient able to hold either lower extremity at 30 degree angle for 5-second count without drift. GCS 15. NIHSS=0 MUSCULOSKELETAL: There is no evidence of acute injury. ED Course Vital Signs 02/04/22 12:13 Temperature 98.9 F Pulse Rate 94 H Respiratory 18 Rate Blood Pressure 140/89 O2 Sat by Pulse 98 Oximetry ED Medical Decision Making - Lab Data Result diagrams: 02/04/22 12:33 02/04/22 12:33 Laboratory Tests 02/04/22 02/04/22 02/04/22 12:33 12:33 12:33 WBC 8.2 RBC 4.53 Hgb 12.8 Hct 39.1 MCV 87 MCH 28 MCHC 33 RDW 14.4 Plt Count 245 Lymph % (Auto) 25.4 Bucks % (Auto) 3.7 Eos % (Auto) 0.7 Baso % (Auto) 0.6 Lymph # (Auto) 2.1 Bucks # (Auto) 0.3 Eos # (Auto) 0.1 Baso # (Auto) 0.0 Seg Neutrophils % 69.6 Seg Neutrophils # 5.7 PT 12.9 INR 0.88 APTT 33.0 Thrombin Time Sodium 140 Potassium 3.4 L Chloride 105.7 Carbon Dioxide 22 Anion Gap 16 BUN 6 L Creatinine 0.7 Estimated GFR > 60 BUN/Creatinine Ratio 9 Glucose 120 H Calcium 9.7 Troponin T < 0.010 02/04/22 12:33 WBC RBC Hgb Hct MCV MCH MCHC RDW Plt Count Lymph % (Auto) Bucks % (Auto) Eos % (Auto) Baso % (Auto) Lymph # (Auto) Bucks # (Auto) Eos # (Auto) Baso # (Auto) Seg Neutrophils % Seg Neutrophils # PT INR APTT Thrombin Time 16.6 Sodium Potassium Chloride Carbon Dioxide Anion Gap BUN Creatinine Estimated GFR BUN/Creatinine Ratio Glucose Calcium Troponin T - EKG Data -: EKG Interpreted by Mo EKG shows normal: sinus rhythm Rate: normal - EKG Data When compared to previous EKG there are: previous EKG unavailable Interpretation: other (No ischemic changes seen) - Radiology Data Radiology results: report reviewed (CT head), image reviewed (CT head) [facility] [address] [place] [address] Cat Scan Report Signed Patient: ELISE BACA MR#: [id number] 24 : 1975 Acct:[id number] Age/Sex: 46 / F ADM Date: 02/04/22 Loc: ED Attending Dr: Ordering Physician: FINESSE HERNANDES MD Date of Service: 02/04/22 Procedure(s): CT head/brain wo con Accession Number(s): [id number] cc: FINESSE HERNANDES MD CT HEAD WITHOUT CONTRAST INDICATION / CLINICAL INFORMATION: neuro deficits <6hrs or sx present upon awakening. TECHNIQUE: All CT scans at this location are performed using CT dose reduction for ALARA by means of automated exposure control. COMPARISON: None available. FINDINGS: BRAIN PARENCHYMA: No acute intracranial hemorrhage. No evidence of recent infarct. No mass effect or midline shift. VENTRICULAR SYSTEM/EXTRA-AXIAL SPACES: Ventricles are normal for age. No extra- axial fluid collection. ORBITS: Normal as visualized. SKELETAL SYSTEM/SOFT TISSUES: Normal bones and soft tissues. PARANASAL SINUSES/MASTOID AIR CELLS: No significant abnormality. ADDITIONAL FINDINGS: None. IMPRESSION: 1. No acute intracranial abnormality. Signer Name: Sulaiman Mello MD Signed: 02/04/2022 12:56 PM Workstation Name: [id number] Transcribed By: FIDELINA Dictated By: Sulaiman Mello MD Electronically Authenticated By: Sulaiman Mello MD Signed Date/Time: 02/04/221255 DD/ 54 TD/TT: - Differential Diagnosis Neuropathy Critical care attestation.: If time is entered above; I have spent that time in minutes in the direct care of this critically ill patient, excluding procedure time. ED Disposition Clinical Impression: Orthostasis, Neuropathy, Hypokalemia Disposition: HOME / SELF CARE / HOMELESS Is pt being admited?: No Does the pt Need Aspirin: No Condition: Stable Instructions: Peripheral Neuropathy, Orthostatic Hypotension Additional Instructions: Return to the emergency department should you develop worsening symptoms, inability to tolerate food or liquids, high fever or any other concerns Referrals: [facility] [Provider Group] - 3-5 Days DERIK BANUELOS MD [Staff Physician] - 3-5 Days (Dr. Banuelos is a neurologist. Please follow-up with him for further evaluation) Time of Disposition: 08:12
[2022-02-05] MEDS: POTASSIUM CHLORIDE ER 20 MEQ TAB PO ONE (07:41)
[2022-02-05] MEDS: SODIUM CHLORIDE 0.9% 1000 ML 1,000 ML IV ONE ×2 (07:41)
[2022-02-05 10:04] VITALS: BP 153/87
== END 2022-02-05 10:05 | disposition home or self-care (01) ==
LOC: ED 12:07
DX: G62.9 Polyneuropathy, unspecified (principal); E87.6 Hypokalemia; F31.9 Bipolar disorder, unspecified; Z87.891 Personal history of nicotine dependence
CPT/HCPCS: 36415; 70450; 80048; 84484; 85025; 85610; 85670; 85730; 93005; 96360; 99284; J7030